=== PATIENT | male | born 1985 | race Caucasian/White ===

== ENCOUNTER 2021-01-29 12:20 | Emergency (ER) | payer SELFPAY ==
[~2021-01-29] VITALS: Ht 170.2 cm; Wt 81.6 kg
--- NOTE | 2021-01-29 12:40 | NUR ---
The patient bibs for c/o "Abdominal pain started yesterday Pressure like more on Left lower. Have had similar instances of same in the past" . Rates pain 02/18. Abdomen soft and non-distended. In room air and denies SOB. Respiration regular and unlabored. Will continue to monitor the patient.
[2021-01-29] MEDS ORDERED: IV NS 0.9% 500 ML BAG IV ONE (13:30)
[2021-01-29 13:47] LABS: BASOPHILS # (AUTO) 0.1 /CMM (0.0-0.2); BASOPHILS % (AUTO) 0.5 % (0.0-2.0); HEMATOCRIT 47 % (39-51); HEMOGLOBIN 15.5 g/dL (13.5-17.5); LYMPHOCYTES # (AUTO) 2.2 /CMM (0.8-4.8); LYMPHOCYTES % (AUTO) 21.7 % (20.0-44.0); MEAN CORPUSCULAR HGB CONC 33 g/dl (31.0-36.0); MEAN CORPUSCULAR VOLUME 91 fL (80-96); MONOCYTES # (AUTO) 0.9 /CMM (0.1-1.30); MONOCYTES % (AUTO) 9.3 % (2.0-12.0); NEUTROPHILS # (AUTO) 6.7 /CMM (1.8-8.9); NEUTROPHILS % (AUTO) 67.5 % (43.0-81.0); PLATELET COUNT (AUTO) 257 /CMM (150-450); RED BLOOD CELL COUNT(AUTO) 5.12 MIL/uL (4.5-6.0); WHITE BLOOD COUNT (AUTO) 9.9 K/uL (4.3-11.0)
[2021-01-29 13:55] LABS: CALCIUM, SERUM 8.9 mg/dL (8.5-10.1); CREATININE 0.7 mg/dL (0.6-1.3); POTASSIUM 4.1 mmol/L (3.5-5.1)
[2021-01-29 14:01] LABS: ALBUMIN 3.6 g/dL (3.4-5.0); BILIRUBIN,DIRECT 0.1 mg/dL (0.0-0.2); BILIRUBIN,TOTAL 0.6 mg/dL (0.2-1.0)
--- NOTE | 2021-01-29 14:03 | NUR ---
The patient does not feel need to urinate at this time but stated that he will give urine later.
[2021-01-29] MEDS ORDERED: IV NS 0.9% 250 ML IV ONE (14:05)
[2021-01-29] MEDS ORDERED: IOHEXOL-300 100 ML VIAL IV ONE (14:05)
--- NOTE | 2021-01-29 14:30 | NUR ---
urine collected and in process
[2021-01-29 14:39] LABS: BILIRUBIN,URINE Negative (NEGATIVE); COLOR,URINE YELLOW (YELLOW); LEUKOCYTE ESTERASE ,URINE Negative (NEGATIVE); NITRITE, URINE Negative (NEGATIVE); PROTEIN,URINE Negative (NEGATIVE); UGLUCOSE Negative (NEGATIVE); UROBILINOGEN,URINE 0.2 EU/dL (0.2)
[2021-01-29 14:42] LABS: BACTERIA,URINE Rare /HPF (None Seen); RBC,URINE NONE SEEN /HPF (0-2); SQUAMOUS EPITHELIAL CELL,UR Few /HPF (None Seen); WBC,URINE NONE SEEN /HPF (0-3)
[2021-01-29] MEDS ORDERED: PIPERACILLIN /TAZOBACTAM 3.375 G in IV D5W 50 ML IV ONE (15:30)
[2021-01-29] MEDS ORDERED: AMOX-430 PO (15:37)
[2021-01-29 16:13] VITALS: BP 132/77
--- NOTE | 2021-01-29 16:13 | NUR ---
Patient discharged to home in stable condition. Written and verbal after care instructions given. Patient verbalizes understanding of instruction.
== END 2021-01-29 16:15 | disposition home or self-care (01) ==
LOC: ER 12:23
DX: K57.32 Diverticulitis of large intestine without perforation or abscess without bleeding (principal)
CPT/HCPCS: 36415; 74177; 80048; 80076; 81001; 83690; 85025; 96361; 96365; 99285; J2543; J7040; J7050; J7060; Q9967